=== PATIENT | male | born 1985 | race Caucasian/White ===

== ENCOUNTER 2022-12-11 18:52 | Emergency (ER) | payer BC ==
[~2022-12-11] VITALS: Ht 182.8 cm; Wt 86.2 kg
== END 2022-12-11 23:05 | disposition home or self-care (01) ==
LOC: ED 18:52
DX: S01.412A Laceration without foreign body of left cheek and temporomandibular area, initial encounter (principal); S10.93XA Contusion of unspecified part of neck, initial encounter; S50.02XA Contusion of left elbow, initial encounter; Y04.2XXA Assault by strike against or bumped into by another person, initial encounter; Y93.89 Activity, other specified; Y92.89 Other specified places as the place of occurrence of the external cause; Y99.8 Other external cause status